=== PATIENT | male | born 1990 | race Caucasian/White ===

== ENCOUNTER 2024-04-04 16:08 | Emergency (ER) | payer SELFPAY ==
[2024-04-04 16:17] VITALS: BP 151/79; PULSE 86; RESP 16; TEMP 37; O2SAT 100
--- NOTE | 2024-04-04 16:39 | ED.MALEGU ---
HPI - Male Genitourinary General Chief complaint: Urogenital-Male Stated complaint: right side penile shaft pain Time Seen by Provider: 04/04/24 16:30 Source: patient, RN notes reviewed and old records reviewed Mode of arrival: ambulatory Limitations: no limitations History of Present Illness HPI Narrative: 33 year old male who presents to [facility] care with complaints of some right sided penis shaft discomfort with dali pain with erection and at times at rest for the past 2-3 months. Patient reports that he was seen at the [facility] department and had STD testing x3 with all tests negative, did receive Zithromax and Rocephin 500 mg Im in past month. Patient admits he did have some urinary urgency prior month but no UTI diagnosed. Patient reports he went to [facility] today for his complaints and was sent here. Patient denies any swelling of penis, no discharge redness or any testicular pain, states no pain at present time, he reports that he has not been sexual active for over a month. MD Complaint: other (right side of penis shaft discomfort) Onset (ago): month(s) (2-3 months) Location: penis (right side of penis shaft) Related Data Allergies Allergy/AdvReac Type Severity Reaction Status Date / Time No Known Allergies Allergy Verified 04/04/24 16:18 Review of Systems Review of Systems: CONSTITUTIONAL: Denies fever, chills, or sweats. CARDIOVASCULAR: Denies chest pain, palpitations, or edema. RESPIRATORY: Denies cough or dyspnea. GASTROINTESTINAL: Denies abdominal pain, nausea, vomiting, or diarrhea. GENITOURINARY: Reports no dysuria, frequency, urgency. Denies flank pain or hematuria. reports some intermittent episodes of right side penis shaft discomfort, denies any drainage, or any testicular or rectal pain SKIN: Denies rash or itching. MUSCULOSKELETAL: Denies back pain or myalgia. Denies CVA tenderness NEUROLOGIC: Denies headache All systems reviewed & are unremarkable except as noted in HPI and below PMFSH Past Medical History Medical History (Updated 04/05/24 @ 11:04 by Sri Valentin NP) No pertinent past medical history Surgical History Surgical History (Updated 04/05/24 @ 11:04 by Sri Valentin NP) No history of previous surgery Social History Social History (Updated 04/05/24 @ 11:05 by Sri Valentin NP) Smoking status: Never smoker Alcohol intake: current Alcohol use details: social Substance use type: does not use Gender identity (if verbalized by the patient): Male Sexual Orientation (if Verbalized by the Patient): Lesbian, Lopez, or Homosexual Comments At time of signature, agree with nursing past medical, surgical, social and family history. There is no relevant family history pertinent to the presenting complaint Exam Narrative: GENERAL: Well-appearing, well-nourished, and in no acute distress. HEAD: Normocephalic, atraumatic. NECK: Supple.no lymphadenopathy CHEST: Clear to auscultation. No respiratory distress.SAO2 100% on room air HEART: Regular rate and rhythm. No murmur heard. Normal peripheral pulses. ABDOMEN: Soft, nontender, nondistended, normal active bowel sounds. No CVA tenderness no penis discharge redness or swelling denies any testicular or rectal pain EXTREMITIES: Normal range of motion. No edema. SKIN: Warm, dry, no rash. NEURO: No focal deficits. Alert and oriented x3.anxious Course Course Emergency Course: Patient is aware of diagnosis, understands and agrees to treatment plan.? Anticipatory guidance given.? Patient agrees to follow-up as directed and is aware of reasons to seek care at the emergency department. Portions of this record may have been created with voice recognition software Level of Care: Express Care Visit Vital Signs Vital signs: Vital Signs Temperature 37.0 C 04/04/24 16:17 Pulse Rate 86 04/04/24 16:17 Respiratory Rate 16 04/04/24 16:17 Blood Pressure 151/79 H 04/04/24 16:17 Pulse Oximetry 10
== END 2024-04-04 17:04 | disposition home or self-care (01) ==
PROVIDERS: Emergency Provider Registered Nurse
DX: N34.2 Other urethritis (principal)
CPT/HCPCS: 99203; G0463

== ENCOUNTER 2024-04-09 14:47 | Emergency (ER) | payer SELFPAY ==
--- NOTE | 2024-04-09 14:50 | ED.MALEGU ---
HPI - Male Genitourinary General Chief complaint: Urogenital-Male Stated complaint: Penile Pain Time Seen by Provider: 04/09/24 15:01 Source: patient and RN notes reviewed Mode of arrival: ambulatory Limitations: no limitations History of Present Illness HPI Narrative: 33-year-old male presents with concern of for a red bump on his penile shaft and bumps on his left hand. He reports the bumps on his hand he has had for a long time, they, go. Reports they can be itchy. He reports he noticed a red bump on shaft of his penis that does not itch or hurt. He has recently been tested for STDs and tested negative, he is currently on ciprofloxacin for urethritis. He has not had any sexual contact since testing negative for STDs Related Data Allergies Allergy/AdvReac Type Severity Reaction Status Date / Time No Known Allergies Allergy Verified 04/09/24 14:55 Review of Systems Review of Systems: CONSTITUTIONAL: Denies malaise, chills, sweats, or fever. CARDIOVASCULAR: Denies chest pain, palpitations, or edema. RESPIRATORY: Denies cough or dyspnea. GASTROINTESTINAL: Denies abdominal pain, nausea, vomiting, diarrhea GENITOURINARY: Denies dysuria, frequency, urgency, suprapubic pressure. Denies flank pain or hematuria. SKIN: Reports itchy bump on the palmar aspect of his left hand reports a red bump on his penile shaft MUSCULOSKELETAL: Denies back pain or myalgia. All systems reviewed & are unremarkable except as noted in HPI and below PMFSH Past Medical History Medical History (Updated 04/09/24 @ 15:11 by Neisha Tom NP) No pertinent past medical history Surgical History Surgical History (Updated 04/05/24 @ 11:04 by Sri Valentin NP) No history of previous surgery Social History Social History (Updated 04/05/24 @ 11:05 by Sri Valentin NP) Smoking status: Never smoker Alcohol intake: current Alcohol use details: social Substance use type: does not use Gender identity (if verbalized by the patient): Male Sexual Orientation (if Verbalized by the Patient): Lesbian, Lopez, or Homosexual Comments At time of signature, agree with nursing past medical, surgical, social and family history. There is no relevant family history pertinent to the presenting complaint Exam Narrative: GENERAL: Well-appearing, well-nourished, and in no acute distress. HEAD: Normocephalic. EYES: PERRLA, conjunctivae clear. NECK: Supple. No lymphadenopathy CHEST: Clear to auscultation. No respiratory distress. HEART: Regular rate and rhythm. SKIN: Callused rash consistent with eczema noted to the palmar aspect of the left hand just below the digits. No bump, redness, swelling appreciated to the penile shaft, no lesions noted to the penile shaft NEURO: Alert and oriented x3. PSYCH: Normal mood and affect Course Course Emergency Course: Patient is aware of diagnosis, understands and agrees to treatment plan. Anticipatory guidance given. Patient agrees to follow-up as directed and is aware of reasons to seek care at the emergency department. Portions of this record may have been created with voice recognition software Level of Care: Express Care Visit Vital Signs Vital signs: Reviewed. MDM - Male Genitourinary MDM Narrative Medical decision making narrative: I evaluated this patient in the express care. History is obtained from patient who is an independent historian and physical exam was performed.? Available medical records were reviewed. ? Exam findings and relevant testing show no acute concerns or changes; patient is non-toxic appearing and is in no distress. ? Differential diagnosis and treatment plan were discussed with the patient. Patient agrees with discussion and after shared medical decision making agrees with plan of care. All questions were answered to the patient's satisfaction. Patient is appropriate for outpatient treatment and follow-up. Critical Care Time Critical Care Time Rupal
[2024-04-09 14:54] VITALS: BP 130/71; PULSE 73; RESP 16; TEMP 37.1; O2SAT 100
== END 2024-04-09 15:12 | disposition home or self-care (01) ==
PROVIDERS: Emergency Provider Nurse Practitioner
DX: L30.9 Dermatitis, unspecified (principal)
CPT/HCPCS: 99211; G0463